=== PATIENT | female | born 1995 | race African-American/Black ===

== ENCOUNTER 2021-03-31 10:18 | Emergency (ER) | payer MEDICAID, OTHER ==
[~2021-03-31] VITALS: Ht 162.6 cm; Wt 49.9 kg
[2021-03-31 13:30] VITALS: BP 119/76
[2021-03-31] MEDS ORDERED: LIDOCAINE 1% HCL (LOCAL ANESTH.) INJ 20ML MDV ONE (13:57)
[2021-03-31] MEDS ORDERED: LIDOCAINE 1% HCL (LOCAL ANESTH.) INJ 20ML MDV IJ ONE (14:00)
[2021-03-31] MEDS ORDERED: BACITRACIN TOP OINT 1 UD PKG TOP ONE (14:45)
== END 2021-03-31 15:15 | disposition home or self-care (01) ==
LOC: ER 10:18
DX: S61.304A Unspecified open wound of right ring finger with damage to nail, initial encounter (principal); V00.131A Fall from skateboard, initial encounter; Y93.51 Activity, roller skating (inline) and skateboarding; Y92.89 Other specified places as the place of occurrence of the external cause; Y99.8 Other external cause status
CPT/HCPCS: 11730; 99284; J2001